=== PATIENT | female | born 1950 | race Caucasian/White ===

== ENCOUNTER 2016-09-30 12:56 | Emergency (ER) | payer MEDICARE, OTHER ==
[~2016-09-30] VITALS: Ht 154.9 cm; Wt 59.4 kg
[2016-09-30 13:58] LABS: BILIRUBIN,URINE NEGATIVE (NEGATIVE); KETONES,URINE NEGATIVE (NEGATIVE); LEUKOCYTE ESTERASE ,URINE 3+ (NEGATIVE); NITRITE,URINE POSITIVE (NEGATIVE); PH,URINE 5 (5-9); PROTEIN,URINE 2+ (NEGATIVE); UROBILINOGEN,URINE NORMAL (NORMAL)
[2016-09-30 14:06] LABS: WBC,URINE TNTC /HPF
--- NOTE | 2016-09-30 14:25 | ED GU-Female ---
General Chief Complaint: -Female Stated Complaint: FEVER UTI SYMPTOMS Nursing Triage Note: PT CO OF POSSIBLE UTI, HAS HX OF KIDNEY TRANSPLANT Nursing Sepsis Screen: No Definite Risk Source: patient Exam Limitations: no limitations History of Present Illness Time seen by provider: 14:25 Initial Comments 66-year-old female patient presents to the emergency department for complaints of possible urinary tract infection. Patient states she has a history of kidney transplant. States she has frequent urinary tract infections. Was last treated at the end of June with IV antibiotics due to multiple resistance. Unsure of exact name of antibiotic. patient does c/o frequency, urgency, and dark urine. patient states she is here visiting from [place], [place]. Timing/Duration: this morning, getting worse Activities at Onset: other (urination) Prior Genitourinary Problems: similar symptoms Allergies and Home Medications Allergies Coded Allergies: codeine (Verified Allergy, Unknown, 09/30/16) exenatide (Verified Allergy, Unknown, 09/30/16) irbesartan (Verified Allergy, Unknown, 09/30/16) levofloxacin (Verified Allergy, Unknown, 09/30/16) meperidine (Verified Allergy, Unknown, 09/30/16) methadone (Verified Allergy, Unknown, 09/30/16) naloxone (Verified Allergy, Unknown, 09/30/16) sulfamethoxazole (Verified Allergy, Unknown, 09/30/16) trimethoprim (Verified Allergy, Unknown, 09/30/16) vancomycin (Verified Allergy, Unknown, 09/30/16) Uncoded Allergies: AZACTUM (Allergy, Unknown, 09/30/16) ERYTHROMYCIN (Allergy, Unknown, 09/30/16) NAPHTHACENEDIONES (Allergy, Unknown, 09/30/16) OPIUM (Allergy, Unknown, 09/30/16) PENICILLIN (Allergy, Unknown, 09/30/16) SEE LIST FOR ALLERGIES (Allergy, Unknown, 09/30/16) Home Medications Nitrofurantoin Monohyd/M-Cryst 100 Mg Capsule, 1 TAB PO BID, #14 Ref 0 Prescribed by: NNAMDI CROOK on 09/30/16 1520 Constitutional: No chills, No fever, No malaise Respiratory: no symptoms reported Cardiovascular: no symptoms reported Gastrointestinal: No abdominal pain, No constipation, No diarrhea, No nausea, No vomiting Genitourinary: see HPI, denies burning, denies discharge, denies dysuria, frequency, denies flank pain, denies hematuria, urgency Musculoskeletal: No back pain Skin: no symptoms reported All Other Systemes Reviewed Negative Unless Noted: Yes (Negative excepted noted.) Past Mmksxvi-Mmhakh-Tjnehe Hx Patient Social History Alcohol Use: Denies Use Recreational Drug Use: No Smoking Status: Never a Smoker Recent Foreign Travel: No Contact w/Someone Who Travel: No Recent Infectious Disease Expo: No Recent Hopitalizations: No Surgeries HX Surgeries: Yes Surgeries: Kidney Transplant Respiratory Hx Respiratory Disorders: No Cardiovascular Hx Cardiac Disorders: Yes Cardiac Disorders: Hypertension Neurological Hx Neurological Disorders: No Genitourinary Hx Genitourinary Disorders: Yes Genitourinary Disorders: Kidney Infection, Kidney Stones, Dialysis Gastrointestinal Hx Gastrointestinal Disorders: No Musculoskeletal Hx Musculoskeletal Disorders: No Endocrine Hx Endocrine Disorders: Yes Endocrine Disorders: Diabetes, Insulin dep, Hypothyroidsim Cancer Hx Cancer: Yes Cancer: Cervical Reviewed Nursing Assessment Reviewed/Agree w Nursing PMH: Yes Family Medical History Significant Family History: No Pertinent Family Hx Physical Exam Vital Signs Vital Sign - Last 12Hours 09/30/16 13:55 Temp 96.0 Pulse 53 Resp 18 B/P (MAP) 147/67 Pulse Ox 99 Capillary Refill : Less Than 3 Seconds General Appearance: WD/WN, no apparent distress Cardiovascular: regular rate, rhythm, no murmur Respiratory: lungs clear, normal breath sounds, no respiratory distress Gastrointestinal: normal bowel sounds, non tender, soft, no organomegaly, No distended Back: normal inspection, no CVA tenderness Extremities: no pedal edema, normal capillary refill Neurologic/Psychiatric: alert, normal mood/affect, oriented x 3 Skin: normal color, warm/dry Progress/Results/Core Measures Results/Orders Lab Results Laboratory Tests Test 09/30/16 13:52 Range/Units Urine Color YELLOW Urine Clarity VERY CLOUDY H Urine pH 5 5-9 Urine Specific [place] 1.020 1.016-1.022 Urine Protein 2+ H NEGATIVE Urine Glucose (UA) NEGATIVE NEGATIVE Urine Ketones NEGATIVE NEGATIVE Urine Nitrite POSITIVE H NEGATIVE Urine Bilirubin NEGATIVE NEGATIVE Urine Urobilinogen NORMAL NORMAL MG/DL Urine Leukocyte Esterase 3+ H NEGATIVE Urine RBC (Auto) 1+ H NEGATIVE Urine RBC 0-2 /HPF Urine WBC TNTC H /HPF Urine Squamous Epithelial Cells 5-10 /HPF Urine Crystals NONE /LPF Urine Bacteria MODERATE H /HPF Urine Casts NONE /LPF Urine Mucus NEGATIVE /LPF Urine Culture Indicated YES My Orders Orders - NNAMDI CROOK Ua Culture If Indicated (09/30/16 13:15) Urine Culture (09/30/16 13:52) Vancomycin Injection (Vancomycin Injecti (09/30/16 15:00) Saline Lock/Iv-Start (09/30/16 14:53) Nitrofurantoin Capsule,Macro (Macrobid C (09/30/16 15:30) Medications Given in ED Current Medications Medications Dose Ordered Sig/Divya Route Start Time Stop Time Status Last Admin Dose Admin Nitrofurantoin Macrocrystals 100 mg ONCE ONCE PO 09/30/16 15:30 09/30/16 15:31 DC 09/30/16 15:37 100 MG Vital Signs/I&O Vital Sign - Last 12Hours 09/30/16 09/30/16 13:55 15:38 Temp 96.0 Pulse 53 53 Resp 18 18 B/P (MAP) 147/67 Pulse Ox 99 99 Blood Pressure Mean: 93 Departure Communication Progress Notes patient seen and evaluated. laboratory findings discussed with the patient. patient does have multiple drug allergies including antibiotics; therefore, patient given 1 dose of macrobid in the ED. patient instructed to contact her keyboarding clerk tomorrow morning before filling the macrobid Rx to find out drug resistance on previous urine culture. patient states she is going back to [place] tomorrow. patient instructed to f/u with her keyboarding clerk in the next 1- 2 days for recheck. Impression Impression: Primary Impression: Urinary tract infection Qualified Codes: N30.00 - Acute cystitis without hematuria Disposition: HOME, SELF-CARE Condition: Improved Departure-Patient Inst. Decision time for Depature: 15:19 Referrals: NO,LOCAL PHYSICIAN (PCP/Family) Primary Care Physician Patient Instructions: Urinary Tract Infection, Adult (DC) Add. Discharge Instructions: All discharge instructions reviewed with patient and/or family. Voiced understanding. Medications as instructed. Contact your keyboarding clerk tomorrow morning to notify him of the urinary tract infection. Follow-up with him in the next 1-2 days for recheck. Return to the emergency department for worsened symptoms, fever, pain, inability to urinate, blood in the urine, or any other concerns. Scripts Nitrofurantoin Monohyd/M-Cryst (Macrobid 100 mg Capsule) 100 Mg Capsule 1 TAB PO BID, #14 CAP 0 Refills Prov: NNAMDI CROOK 09/30/16 NNAMDI CROOK Sep 30, 2016 14:25
[2016-09-30] MEDS ORDERED: VANCOMYCIN INJECTION 1,000 MG in NS (IVPB) 250 ML IV ONE (15:00)
[2016-09-30] MEDS ORDERED: NITR-65 PO (15:20)
[2016-09-30] MEDS ORDERED: NITROFURANTOIN 100 MG (MACROBID) CAPSULE PO ONE (15:30)
[2016-09-30 15:38] VITALS: BP 138/66
== END 2016-09-30 15:38 | disposition home or self-care (01) ==
LOC: ER 12:59
DX: N39.0 Urinary tract infection, site not specified (principal); E11.9 Type 2 diabetes mellitus without complications; E03.9 Hypothyroidism, unspecified; I10 Essential (primary) hypertension; Z94.0 Kidney transplant status; Z99.2 Dependence on renal dialysis; Z85.41 Personal history of malignant neoplasm of cervix uteri; Z87.442 Personal history of urinary calculi
CPT/HCPCS: 81000; 87077; 87088; 87186; 99283